=== PATIENT | female | born 1995 | race Caucasian/White ===

== ENCOUNTER 2020-12-02 20:07 | Inpatient (IN) ==
[2020-12-02] MEDS ORDERED: BUTORPHANOL 2 MG/ML VIAL IV PRN (20:23)
[2020-12-02] MEDS ORDERED: ACETAMINOPHEN 325 MG TABLET PO PRN (20:23)
[2020-12-02] MEDS ORDERED: LACTATED RINGERS 500 ML IV PRN (20:23)
[2020-12-02] MEDS ORDERED: ONDANSETRON 4 MG/2 ML VIAL IV PRN (20:23)
[2020-12-02] MEDS ORDERED: DINOPROSTONE 10 MG VAG.INSERT VAG ONE (20:23)
[2020-12-02] MEDS ORDERED: MEPERIDINE 50 MG/1 ML VIAL IM PRN (20:23)
[2020-12-02] MEDS ORDERED: LACTATED RINGERS 1,000 ML IV SCH (20:30)
[2020-12-02 21:05] LABS: Basophils % 0.2 % (0.0-0.8); Eosinophils # 0.1 10*3/uL (0.0-0.87); Eosinophils % 0.5 % (0.00-10.9); Hematocrit 34.3 VOL% (35.7-47.0); Hemoglobin 10.6 GM/DL (12.0-16.0); Immature Granulocytes % 0.8 %; Immature Granulocytes Absolute 0.09 #; Lymphocytes % 17.7 % (21.3-54.2); Mean Corpuscular HGB Conc 30.9 GM/DL (32-36); Mean Corpuscular Volume 77.6 FL (87-102); Monocytes % 8.9 % (1.7-12.7); Neutrophils % 71.9 % (38.7-73.9); Platelet Count 262 T/CUMM (130-400); Red Blood Count 4.42 MC/CUMM (3.8-5.5); Red Cell Distribution Width 16.9 % (9.3-17.3); White Blood Count 11.1 T/CUMM (4-12)
[2020-12-02 21:24] LABS: Alanine Aminotransferase 22 U/L (13-56); Alkaline Phosphatase 162 U/L (45-117); Aspartate Amino Transferase 19 U/L (0-37); Bilirubin,Total < 0.39 MG/DL (0.2-1.0); Blood Urea Nitrogen 6 MG/DL (7-18); Calcium 8.8 MG/DL (8.5-10.1); Carbon Dioxide 21 MMOL/L (21-32); Estimated Glom Filtration Rate 173 ML/MIN; Glucose 81 MG/DL (74-106); Osmolality,Calculated 271.7 MOS/KG (273-304); Potassium 3.9 MMOL/L (3.5-5.1); Sodium 138 MMOL/L (136-145); Total Protein 6.9 G/DL (6.4-8.3)
[2020-12-02 22:05] LABS: Bilirubin,Urine Negative (Negative); Blood, Urine Negative (Negative); Glucose,Urine (UA) Negative (Negative); Ketones,Urine Negative (Negative); Nitrite,Urine Negative (Negative); Protein,Urine Negative; Urine Appearance CLEAR (Clear); Urine Color Yellow (Yellow); Urine Specific Gravity 1.011 (1.001-1.035); Urine Urobilinogen < 2.0 EU/DL (0.2-1.0)
[2020-12-02 22:08] LABS: Bacteria,Urine Occasional /HPF (Few); Mucus,Urine Occasional /LPF (Occasional); RBC,Urine 3 /HPF (0-4); Squamous Epithelial Cell,Urine Occasional /HPF (0-10); WBC,Urine 5 /HPF (0-6)
[2020-12-03] MEDS ORDERED: LOPERAMIDE 2 MG CAPSULE PO PRN (00:43)
[2020-12-03] MEDS ORDERED: MEPERIDINE 50 MG/1 ML VIAL IV PRN (03:26)
[2020-12-03] MEDS ORDERED: TRANEXAMIC ACID 1,000 MG/10 ML VIAL ONE (04:05)
[2020-12-03] MEDS ORDERED: METHYLERGONOVINE 0.2 MG/1 ML AMP ONE (04:05)
[2020-12-03] MEDS ORDERED: miSOPROStoL 200 MCG TABLET ONE (04:05)
[2020-12-03] MEDS ORDERED: SODIUM CHLORIDE 0.9% 0 ML IV ONE (04:06)
[2020-12-03] MEDS ORDERED: LIDOCAINE 1% 50 ML VIAL ONE (04:06)
[2020-12-03] MEDS ORDERED: CARBOPROST TROMETHAMINE 250 MCG/ML AMP IM ONE (04:06)
[2020-12-03] MEDS ORDERED: OXYTOCIN/LR 20 UNIT/1,000 ML BAG IV ONE ×2 (04:07→06:09)
[2020-12-03 05:02] LABS: Cord Arterial Blood HCO3 21.5 MMOL/L
[2020-12-03 05:03] LABS: Cord Venous Blood PCO2 44.6 MMHG
[2020-12-03] MEDS ORDERED: IBUPROFEN 800 MG TABLET PO PRN (05:17)
[2020-12-03] MEDS ORDERED: ACETAMINOPHEN 500 MG TABLET PO PRN (05:17)
[2020-12-03] MEDS ORDERED: BISACODYL 10 MG SUPP RECTAL PRN (05:17)
[2020-12-03] MEDS ORDERED: MAGNESIUM HYDROXIDE SUSP 30 ML UDCUP PO PRN (05:17)
[2020-12-03] MEDS ORDERED: LACTATED RINGERS 1,000 ML IV SCH (05:30)
[2020-12-03] MEDS: DOCUSATE SODIUM 100 MG CAPSULE PO SCH ×3 (10:11→20:14)
[2020-12-03] MEDS: MULTIVITAMIN (PRENATAL) TABLET PO SCH (10:11)
[2020-12-04 05:24] LABS: Basophils % 0.3 % (0.0-0.8); Eosinophils # 0.1 10*3/uL (0.0-0.87); Eosinophils % 0.5 % (0.00-10.9); Hematocrit 29.5 VOL% (35.7-47.0); Hemoglobin 9.4 GM/DL (12.0-16.0); Immature Granulocytes % 0.8 %; Lymphocytes # 2.8 10*3/uL (1.4-4.0); Lymphocytes % 23.7 % (21.3-54.2); Mean Corpuscular HGB Conc 31.9 GM/DL (32-36); Mean Corpuscular Volume 77.8 FL (87-102); Monocytes % 7.6 % (1.7-12.7); Neutrophils % 67.1 % (38.7-73.9); Platelet Count 230 T/CUMM (130-400); Red Blood Count 3.79 MC/CUMM (3.8-5.5); Red Cell Distribution Width 17.2 % (9.3-17.3)
[2020-12-04] MEDS ORDERED: FERROUS SULFATE 325 MG TABLET PO SCH (09:00)
[2020-12-04] MEDS ORDERED: BENZOCAINE 20%/MENTHOL 0.5% SPRAY 56 GM CAN TOP PRN (09:00)
[2020-12-04] MEDS: IRON (CARBONYL)/VIT C/B12/FA TABLET PO SCH (09:05)
[2020-12-04] MEDS: MULTIVITAMIN (PRENATAL) TABLET PO SCH (09:06)
[2020-12-04] MEDS: DOCUSATE SODIUM 100 MG CAPSULE PO SCH ×2 (09:06→21:16)
[2020-12-05 07:24] VITALS: BP 125/69
[2020-12-05] MEDS: IRON (CARBONYL)/VIT C/B12/FA TABLET PO SCH (08:44)
[2020-12-05] MEDS: DOCUSATE SODIUM 100 MG CAPSULE PO SCH (08:44)
[2020-12-05] MEDS: MULTIVITAMIN (PRENATAL) TABLET PO SCH (08:45)
== END 2020-12-05 14:40 | disposition home or self-care (01) | DRG 560 ==
LOC: N.LDOUT 20:07 → N.LD 20:10 → N.OB 12-03 09:07
PROVIDERS: ADMIT Obstetrics & Gynecology; ATTEND Obstetrics & Gynecology